=== PATIENT | female | born 1980 | race African-American/Black ===

== ENCOUNTER 2024-02-26 15:43 | Emergency (ER) | payer OTHER ==
[2024-02-26] MEDS ORDERED: Ketorolac Tromethamine 30 MG (1 mL) VIAL ONE (15:56)
== END 2024-02-26 16:42 | disposition home or self-care (01) ==
LOC: MADERS 15:43
DX: M25.532 Pain in left wrist (principal); Z55.6 Problems related to health literacy
CPT/HCPCS: 96372; 99283; J1885